=== PATIENT | female | born 1955 | race Caucasian/White ===

== ENCOUNTER 2023-02-10 15:15 | Emergency (ER) | payer OTHER ==
[~2023-02-10] VITALS: Ht 157.5 cm; Wt 86.6 kg
[2023-02-10 15:50] VITALS: BP 147/78
--- NOTE | 2023-02-10 16:08 | NUR ---
AMB. TO CHAIR Francoise GREEBNERG DIFF.
[2023-02-10] MEDS ORDERED: ACETAMINOPHEN EXTRA STRENGTH 500 MG TAB PO ONE (16:15)
[2023-02-10] MEDS ORDERED: BACITRACIN OINT 500 UNITS/GM PKT TP ONE (16:20)
--- NOTE | 2023-02-10 17:25 | NUR ---
VOLAR SPLINT APPLIED TO L WRIST. SLING APPLIED TO L ARM. + CMS
[2023-02-10] MEDS ORDERED: BACI-416 TP (17:41)
[2023-02-10] MEDS ORDERED: ACET-10509 PO (17:41)
[2023-02-10 17:50] VITALS: BP 132/72
--- NOTE | 2023-02-10 17:52 | NUR ---
Patient discharged with v/s stable. Written and verbal after care instructions given and explained. Patient verbalized understanding. Ambulatory with steady gait. All questions addressed prior to discharge. Advised to follow up with PMD. splint in place, n/c intact, arm on sling
--- NOTE | 2023-02-10 17:52 | NUR ---
forehead abrasion cleaned w ns, bacitracin applied
== END 2023-02-10 17:50 | disposition home or self-care (01) ==
LOC: MED 15:15
DX: S60.222A Contusion of left hand, initial encounter (principal); S80.02XA Contusion of left knee, initial encounter; S09.90XA Unspecified injury of head, initial encounter; W18.30XA Fall on same level, unspecified, initial encounter; Y93.89 Activity, other specified; Y92.89 Other specified places as the place of occurrence of the external cause; Y99.8 Other external cause status
CPT/HCPCS: 29125; 70450; 72125; 73130; 73562; 99284; Q0092